=== PATIENT | female | born 1965 | race African-American/Black ===

== ENCOUNTER 2020-08-18 03:02 | Emergency (ER) | payer MEDICAID ==
[~2020-08-18] VITALS: Ht 162.6 cm; Wt 93.0 kg
[2020-08-18 03:52] VITALS: BP 135/88
[2020-08-18] MEDS ORDERED: T3 PO (05:26)
== END 2020-08-18 05:43 | disposition home or self-care (01) ==
LOC: ER 03:02
DX: M25.561 Pain in right knee (principal); W11.XXXA Fall on and from ladder, initial encounter; Y93.E9 Activity, other interior property and clothing maintenance; Y92.89 Other specified places as the place of occurrence of the external cause
CPT/HCPCS: 73562; 99283; L1830